=== PATIENT | male | born 1980 | race African-American/Black ===

== ENCOUNTER 2020-08-29 15:15 | Emergency (ER) | payer SELFPAY ==
[~2020-08-29] VITALS: Ht 182.9 cm; Wt 97.7 kg
[2020-08-29 15:46] VITALS: BP 192/60
[2020-08-29] MEDS ORDERED: METH4TAB2 PO (15:55)
[2020-08-29] MEDS ORDERED: NAPR-514 PO (15:55)
[2020-08-29] MEDS ORDERED: CYCL-331 PO (15:55)
--- NOTE | 2020-08-29 15:55 | PHYS DOC ---
Past History Past Medical History: No Pertinent History Past Surgical History: No Surgical History Alcohol Use: Occasionally Adult General Chief Complaint Chief Complaint: BACK PAIN OR INJURY HPI HPI Patient is a 40-year-old male patient who presents to the ED today complaining of 8 out of 10 left low back pain nonradiating nature that began 2 to 3 days ago once the weather started getting colder. Patient denies any injuries. Denies any loss of bowel/bladder function. States the pain is worse when he bends over or tries to move around. He states he has had similar pain before and was given steroid injection which relieved the pain. Review of Systems Review of Systems Constitutional: Denies fever or chills [] GI: Denies abdominal pain, nausea, vomiting, bloody stools or diarrhea [] : Denies dysuria or hematuria [] Musculoskeletal: Reports low back pain Integument: Denies rash or skin lesions [] Neurologic: Denies headache, focal weakness or sensory changes [] All other systems were reviewed and found to be within normal limits, except as documented in this note. Allergies Allergies Allergies Coded Allergies Type Severity Reaction Last Updated Verified No Known Drug Allergies 08/29/20 No Physical Exam Physical Exam Constitutional: Well developed, well nourished, no acute distress, non-toxic appearance. [] Abdomen: Bowel sounds normal, soft, no tenderness, no masses, no pulsatile masses. [] Skin: Warm, dry, no erythema, no rash. [] Back: Diffuse paraspinal muscle tenderness to the right lumbar pain no midline tenderness, no CVA tenderness. [] Extremities: No tenderness, no cyanosis, no clubbing, ROM intact, no edema. [] Neurologic: Alert and oriented X 3, normal motor function, normal sensory function, no focal deficits noted. [] Psychologic: Affect normal, judgement normal, mood normal. [] Current Patient Data Vital Signs Vital Signs Date Time Temp Pulse Resp B/P (MAP) Pulse Ox O2 Delivery O2 Flow Rate FiO2 08/29/20 15:46 98.0 73 16 192/60 (104) 98 Room Air EKG EKG [] Radiology/Procedures Radiology/Procedures [] Heart Score Risk Factors: Risk Factors: DM, Current or recent (<one month) smoker, HTN, HLP, family history of CAD, obesity. Risk Scores: Risk Factors: DM, Current or recent (<one month) smoker, HTN, HLP, family history of CAD, obesity. Course & Med Decision Making Course & Med Decision Making Pertinent Labs and Imaging studies reviewed. (See chart for details) This is a 40-year-old male patient presenting to the ED today with low back pain, will be discharged with Medrol Dosepak, cyclobenzaprine and naproxen. Follow-up with the PCP in 1 to 2 weeks. Given Solu-Medrol IM in the ED. Dragon Disclaimer Dragon Disclaimer This electronic medical record was generated, in whole or in part, using a voice recognition dictation system. Departure Departure: Impression: Primary Impression: Low back pain Disposition: DC HOME SELF CARE/HOMELESS Condition: STABLE Referrals: PCP,NO (PCP) follow up with your doctor in 1-2 weeks Patient Instructions: Back Pain, Adult Additional Instructions: You were seen for back pain. Take the prescribed medications as ordered. Follow-up with your primary care doctor in 1 to 2 weeks Scripts Naproxen (NAPROXEN) 500 Mg Tablet 1 TAB PO BID for pain, #30 TAB 0 Refills Prov: DAVID HUDSON APRN 08/29/20 Cyclobenzaprine Hcl (CYCLOBENZAPRINE HCL) 10 Mg Tablet 1 TAB PO TID, #30 TAB Prov: DAVID HUDSON APRN 08/29/20 Methylprednisolone (MEDROL) 4 Mg Tab.ds.pk 1 PKG PO UD, #1 PKG Prov: DAVID HUDSON APRN 08/29/20 Problem Qualifiers Primary Impression: Low back pain Chronicity: acute Back pain laterality: right Sciatica presence: without sciatica Qualified Codes: M54.5 - Low back pain DAVID HUDSON APRN Aug 29, 2020 15:55
[2020-08-29] MEDS ORDERED: methylPREDNISolone SOD SUCC PF 125 MG/2 ML VIAL. IM ONE (16:00)
== END 2020-08-29 15:58 | disposition home or self-care (01) ==
LOC: ER 15:15
DX: M54.5 Low back pain (principal)
CPT/HCPCS: 96372; 99283; J2930